=== PATIENT | male | born 1930 | race Caucasian/White ===

== ENCOUNTER 2017-09-27 06:57 | Inpatient (IN) ==
[2017-09-27 07:03] VITALS: BMI 31.1
--- NOTE | 2017-09-27 07:33 | ED.PDOC ---
General ED Provider: Dr. LUIS HANSON Chief Complaint: Chest Wall Injury/Pain Stated Complaint: chest wall injury Time Seen by Physician: 07:00 (fall 10 days ago) Information Source: Patient Exam Limitations: No limitations Primary Care Provider: PERLA NUNEZ Nursing and Triage Documentation Reviewed and Agree: Yes Reviewed sepsis parameters & appropriate labs ordered?: Yes System Inflammatory Response Syndrome: Not Applicable Sepsis Protocol: For patient's 13 years and over: Temp is 96.8 and below OR 101 and greater Pulse >90 BPM Resp >20/minute Acutely Altered Mental Status Are patient's symptoms suggestive of a new infection, such as: -Pneumonia -Skin, Soft Tissue -Endocarditis -UTI -Bone, Joint Infection -Implantable Device -Acute Abdominal Infection -Wound Infection -Meningitis -Blood Stream Catheter Infection -Unknown Cardiovascular Complaint Exam - Chest Pain Complaint/Exam Onset: Gradual Duration: this AM , BUT FELL 10DAYS AGO Symptoms Are: Still present Timing: Intermittent Length of Chest Pain Episodes: 1HR POSTIONAL Initial Severity: Moderate Current Severity: Moderate Location: Reports: Midsternal Pain Radiates: Reports: Other (POSTIONAL AND REPRODUCEABLE BRADYCARDIC THIS MORNING). Denies: Back, Left shoulder, Right shoulder, Left arm, Right arm, Jaw , Neck, Epigastrium Character: Reports: Sharp (SEE ABOVE ISSUES ) Aggravating: Reports: Movement Alleviating: Reports: Spontaneous resolution Associated Signs and Symptoms: Denies: Diaphoresis, Nausea, Vomiting, Fever, Palpitations, Cough, Hemoptysis, Back pain, Abdominal pain, Dizziness, Short of air, Calf pain, Calf swelling Related History: Reports: Similar episode History of Healthcare-Acquired Pneumonia: Reports: No AMI/ACS Risk Factors: Reports: Sedentary, Hypertension TAD Risk Factors: Reports: Hypertension Pulmonary Embolism Risk Factors: Reports: Bedrest Prior Care for this Complaint: No Recent Stress Test: No Recent Echo/LV Function: No JVD Present: No Subcutaneous Emphysema Present: No Diminshed Breath Sounds: No Reproducible Chest Wall Pain: Yes (ANT UPPER CHEST) Bilateral Pulses Present: Yes Unequal Pulses Noted: No If Risk Factors for AMI/ACS Consider: EKG, Cardiac Enzymes Differential Diagnoses: Stable Angina, GI Diseasae Quality Indicators For Acute [place] or Cardiac Chest Pain: EKG in 10min. Review of Systems - Review Of Systems Constitutional: Reports: No symptoms Eyes: Reports: No symptoms Ears, Nose, Mouth, Throat: Reports: No symptoms Respiratory: Reports: No symptoms Cardiac: Reports: Chest pain GI: Reports: No symptoms : Reports: No symptoms Musculoskeletal: Reports: No symptoms Skin: Reports: No symptoms Neurological: Reports: No symptoms Endocrine: Reports: No symptoms Hematologic/Lymphatic: Reports: No symptoms All Other Systems: Reviewed and Negative Past Medical History - Past Medical History Previously Healthy: Yes Endocrine: Reports: Dyslipidemia Cardiovascular: Reports: Hypertension Respiratory: Reports: None Hematological: Reports: None Gastrointestinal: Reports: None Genitourinary: Reports: None Neuro/Psych: Reports: None Musculoskeletal: Reports: None Cancer: Reports: None - Surgical History General Surgical History: Reports: None - Family History Family History: Reports: None - Social History Smoking Status: Never smoker Hx Substance Use: No Alcohol Screening: Occasionally Physical Exam - Physical Exam Appearance: Well-appearing, No pain distress, Well-nourished Eyes: BETO, EOMI, Conjunctiva clear ENT: Ears normal, Nose normal, Oropharynx normal Respiratory: Airway patent, Breath sounds clear, Breath sounds equal, Respirations nonlabored Cardiovascular: Pulses normal, No rub, No murmur, Bradycardia GI/: Soft, Nontender, No masses, Bowel sounds normal, No Organomegaly Musculoskeletal: Normal strength (reproduceable pain over upper chest centraly ) Skin: Warm, Dry, Normal color Neurological: Sensation intact, Motor intact, Reflexes intact, Cranial nerves intact, Alert, Oriented Psychiatric: Affect appropriate, Mood appropriate Physician Notification - Case Discussed Physician Notified: pmd Time of Notification: 09:00 Admit To: Inpatient Critical Care Note - Critical Care Note Total Time (mins): 0 Course - Course Hematology/Chemistry: 09/27/17 07:45 09/27/17 07:45 Orders, Labs, Meds: Lab Review 09/27/17 09/27/17 09/27/17 07:45 07:45 07:45 WBC 4.72 RBC 3.54 L Hgb 10.7 L Hct 31.2 L MCV 88.1 MCH 30.2 MCHC 34.3 RDW Coeff of Ivana 19.5 H Plt Count 90 L Immature Gran % (Auto) 1.9 Neut % (Auto) 56.2 Lymph % (Auto) 32.4 [place] % (Auto) 7.6 Eos % (Auto) 1.5 Baso % (Auto) 0.4 Immature Gran # (Auto) 0.1 Neut # (Auto) 2.7 Lymph # (Auto) 1.5 [place] # (Auto) 0.4 Eos # (Auto) 0.1 Baso # (Auto) 0.0 Sodium 134 L Potassium 3.9 Chloride 100 Carbon Dioxide 24 Anion Gap 13.9 BUN 17 Creatinine 0.84 Estimated GFR (MDRD) 86.00 BUN/Creatinine Ratio 20.23 Glucose 107 Calcium 8.9 Total Bilirubin 0.7 AST 15 ALT 11 L Alkaline Phosphatase 61 Total Creatine Kinase 42 Troponin I < 0.0100 B-Natriuretic Peptide 355 H Total Protein 6.5 Albumin 3.2 L Globulin 3.3 Albumin/Globulin Ratio 0.97 Orders Category Date Time Status EKG-(ED ONLY) Stat CARDIO 09/27/17 07:28 Completed ED IV/MEDIPORT/POWERPORT .ONCE EMERGENCY 09/27/17 07:28 Active B-TYPE NATRIURETIC PEPTIDE Stat LAB 09/27/17 07:45 Completed CBC W/ AUTO DIFF Stat LAB 09/27/17 07:45 Completed COMPREHENSIVE METABOLIC PANEL Stat LAB 09/27/17 07:45 Completed CREATINE KINASE Stat LAB 09/27/17 07:45 Completed TROPONIN I Stat LAB 09/27/17 07:45 Completed 0.9 % Sodium Chloride [Saline Flush] MEDS 09/27/17 07:28 Active 1 syr IVF PRN PRN CT CHEST W/O CONTRAST Stat RADS 09/27/17 07:29 Completed Medications Generic Name Dose Route Start Last Admin Trade Name Freq PRN Reason Stop Dose Admin Sodium Chloride 1 syr 09/27/17 07:28 Saline Flush IVF PRN PRN To flush IV Vital Signs: Temp Pulse Resp BP Pulse Ox 09/27/17 06:58 97.1 F L 50 L 20 152/75 H 94 L OBED Risk Score OBED Risk Score: Risk Score Odds of by 30D 0 0.1 (0.1-0.2) 1 0.3 (0.2-0.3) 2 0.4 (0.3-0.5) 3 0.7 (0.6-0.9) 4 1.2 (1.0-1.5) 5 2.2 (1.9-2.6) 6 3.0 (2.5-3.6) 7 4.8 (3.8-6.1) Departure - Departure Time of Disposition: 08:28 Disposition: ADMITTED INPATIENT Discharge Problem: Chest wall pain, Chest injury Chest pain Qualifiers: Chest pain type: unspecified Qualified Code(s): R07.9 - Chest pain, unspecified Instructions: Angina (DC), Chest Pain (ED) Condition: Good Pt referred to PMD for follow-up: Yes IPMP verified?: No Additional Instructions: Please call your Family Physician as soon as possible to schedule a follow-up appointment. Allergies/Adverse Reactions: Allergies No Known Allergies Allergy (Unverified 09/27/17 07:02) Home Medications: Ambulatory Orders Donepezil HCl 10 mg PO BEDTIME 09/27/17 Gabapentin 100 mg PO BID 09/27/17 Hydrochlorothiazide 25 mg PO EVERY OTHER DAY 09/27/17 Lisinopril [Zestril] 5 mg PO DAILY 09/27/17 Pravastatin Sodium [Pravachol] 40 mg PO BEDTIME 09/27/17 Propranolol HCl 40 mg PO BID 09/27/17 Sulfasalazine 500 mg PO BID 09/27/17 Disposition Discussed With: Patient, Family
--- NOTE | 2017-09-27 08:13 | CT ---
EXAM: CT chest without contrast. HISTORY: Chest pain, trauma. Initial presentation. COMPARISON: None available. TECHNIQUE: Multiple axial images of the chest were obtained without intravenous contrast. Images we re reformatted in the sagittal and coronal planes. FINDINGS: Evaluation for lymphadenopathy is limited by lack of intravenous contrast but heart size i s normal. Atherosclerotic calcifications present. Ascending thoracic aorta measures up to 3.8 cm di ameter. No periaortic hemorrhage identified. The lungs are clear save for calcified granulomatous changes. No pleural effusion or pneumothorax id entified. Limited images of the upper abdomen demonstrate a left renal cysts and colonic diverticulosis. Degen erative changes are present in the spine minimally-displaced fracture of the sternal body seen on sag ittal image 39. IMPRESSION: 1. Minimally-displaced sternal body fracture. 2. No acute intrathoracic abnormality.
[2017-09-27] MEDS ORDERED: HYDROCHLOROTHIAZIDE PO SCH (09:00)
--- NOTE | 2017-09-27 09:24 | CT ---
EXAM: CT BRAIN HISTORY: Fall TECHNIQUE: CT brain without intravenous contrast. 5-mm axial sections with Reformations. COMPARISON: 10/09/2007 FINDINGS: There is generalized atrophy. There is at least mild periventricular and deep white matter low attenu ation which although nonspecific is suggestive of chronic microvascular ischemic change. These findi ngs are grossly stable. Brain otherwise is unremarkable without evidence of hemorrhage or large vessel distribution recent is chemic infarction. There is no suggestion of acute hydrocephalus or subdural fluid collection. No m ass or mass effect. Cranium is within normal limits. Mastoid processes are aerated. The visualized paranasal sinuses a re clear. IMPRESSION: No acute intracranial process or injury. No skull fracture.
--- NOTE | 2017-09-27 09:30 | CT ---
EXAM: CT scan thoracic spine without contrast HISTORY: Injury COMPARISON: None. FINDINGS: Contiguous axial images obtained through the thoracic spine utilizing 3-mm collimation. S agittal and coronal reconstructions were imaged and reviewed.. The vertebral bodies normal height al ignment. There is multilevel degenerate disc disease within the lower half of the thoracic spine wit h ventral spondylitic changes. The facet joints are intact. There is mild narrowing of the central c anal and bilateral neural foramen T10-T11. IMPRESSION: Osteoarthritic degenerative changes without acute findings.
--- NOTE | 2017-09-27 09:33 | CT ---
EXAM: CT cervical spine. HISTORY: Fall, injury. TECHNIQUE: CT cervical spine without contrast. Detailed axial sections. Coronal and sagittal re-fo rmations. COMPARISON: None FINDINGS: Bones appear demineralized. No acute fracture is identified. There is diffuse degenerative disc and facet disease, some levels severe including C5/C6 where there is loss of intervertebral disc space an d endplate sclerosis without endplate erosion. There is mild posterior spondylolisthesis of C5 on C6 by 2.3 mm likely chronic in nature. Multilevel central stenosis, again most apparent at C5/C6, at l east moderate. Facet joints are covered. Lateral masses are normally aligned and the odontoid proce ss is intact. There is no paraspinal hematoma. Incidental findings include atherosclerotic disease. IMPRESSION: No acute fracture or subluxation. Diffuse degenerative changes.
[2017-09-27] MEDS: NEURONTIN PO SCH ×2 (11:11→20:13)
[2017-09-27] MEDS: AZULFIDINE PO SCH ×2 (11:11→20:13)
[2017-09-27] MEDS: SODIUM CHLORIDE 1,000 ML IV SCH ×2 (11:12→23:12)
[2017-09-27] MEDS: ZESTRIL PO SCH (11:12)
[2017-09-27] MEDS: TORADOL IVP SCH ×2 (13:43→21:13)
--- NOTE | 2017-09-27 14:45 | US ---
EXAM: Carotid ultrasound HISTORY: Falls, dizziness/lightheadedness, hypertension COMPARISON: None TECHNIQUE: Carotid ultrasound was performed using victor scale, color, and Doppler imaging was perform ed. FINDINGS: Right carotid: There is atherosclerotic plaque in the bulb/proximal internal carotid artery with vis ual estimate of narrowing approximating 50%. Peak systolic velocity measurement in the right interna l carotid artery is 0.9 meters per second. End-diastolic velocity measurement in the right internal carotid artery is 0.1 meters per second. Right internal to common carotid artery peak systolic veloc ity ratio is 1.6. Right vertebral artery not visualized. Left carotid: There is atherosclerotic plaque in the bulb/proximal internal carotid artery with visu al estimate of narrowing approximating 50%. Peak systolic velocity measurement in the left internal carotid artery is 1.0 meters per second. End-diastolic velocity measurement in the left internal car otid artery is 0.1 meters per second. Left internal to common carotid artery peak systolic velocity ratio measures 1.5. Flow in the left vertebral artery is antegrade. IMPRESSION: 1. Right internal carotid: Peak systolic velocity corresponds with mild (less than 50%) stenosis, wit h the visual estimate of narrowing approximating 50% 2. Left internal carotid: Peak systolic velocity corresponds with mild (less than 50%) stenosis, wit h the visual estimate of narrowing approximating 50% 3. Right vertebral artery not visualized. Antegrade flow left vertebral artery.
[2017-09-27] MEDS ORDERED: PRAVACHOL PO SCH (21:00)
[2017-09-28] MEDS: TORADOL IVP SCH (04:17)
[2017-09-28] MEDS: AZULFIDINE PO SCH (08:50)
[2017-09-28] MEDS: NEURONTIN PO SCH (08:50)
[2017-09-28] MEDS: ZESTRIL PO SCH (08:50)
[2017-09-28] MEDS ORDERED: HYDROCHLOROTHIAZIDE PO SCH (09:00)
[2017-09-28 10:20] VITALS: BP 144/62; TEMP 97.6
--- NOTE | 2017-09-28 11:23 | PCM.PROG ---
Attending Provider: ATTENDING PROVIDER: Dr. PERLA NUNEZ This patient is seen with Grace Simons, Nurse Practitioner. DATE OF SERVICE: 09/28/17 SUBJECTIVE: This 87 year old WHITE/ M was hospitalized 09/27/17. The patient is sitting in chair, alert. He states he wants to go home today. His pain is minimal. No shortness of breath. He does have some elevated blood pressure and leg edema, which is chronic. REVIEW OF SYSTEMS: CONSTITUTIONAL: No night sweats. No fatigue, malaise, lethargy. No fever or chills. HEENT: Eyes: No visual changes. No eye pain. No eye discharge. ENT: No runny nose. No epistaxis. No sinus pain. No odynophagia. No congestion. RESPIRATORY: No cough, no congestion. No hemoptysis. No shortness of breath. CARDIOVASCULAR: No angina symptoms. No CHF symptoms. No atypical chest pain for CAD. No palpitations. No orthopnea.. GASTROINTESTINAL: No abdominal pain. No nausea or vomiting. No diarrhea or constipation. No hematemesis. No hematochezia. GENITOURINARY: No urgency. No frequency. No dysuria. No hematuria. No obstructive symptoms. No discharge. No pain. No significant abnormal bleeding. MUSCULOSKELETAL: Tenderness in sternal region. NEUROLOGICAL: Awake, alert, oriented to time, place and person. No headache. No neck pain. No syncope. No seizures. No dizziness. PSYCHIATRIC: Not anxious. No depression. No suicidal thoughts. No homicidal thoughts. SKIN: No rash. No lesions. No wounds. ENDOCRINE: No unexplained weight loss. No weight gain. HEMATOLOGIC/LYMPHATIC: No anemia. No purpura. No petechiae. No prolonged or excessive bleeding. No palpable lymph nodes. PHYSICAL EXAMINATION: GENERAL: The patient is awake, alert and oriented, sitting in chair in no distress. VITAL SIGNS: Temperature 97.5 F, Pulse 51, Respiratory Rate 16, BP 160/62, Pulse Ox 98% HEENT: Head normocephalic, atraumatic. Eyes: Extraocular muscles are intact. Pupils are equal, round and reactive to light and accommodation. Ears: No lesions. Nose appeared normal. Throat: No exudate or erythema. NECK: Supple. No JVD, no carotid bruit. No lymphadenopathy or thyromegaly. LUNGS: Diminished breath sounds. Clear to auscultation. Percussion note normal. Chest symmetrical. HEART: S1, S2, no S3. No murmurs. No cyanosis or clubbing. No ascites. Pulses: Dorsalis pedis and posterior tibial pulses +1 to +2 both sides. ABDOMEN: Soft. Non-tender. Bowel sounds active. No CVA tenderness. No mass felt. EXTREMITIES: +1 leg edema. Full range of motion of all extremities, equal. NEUROLOGIC: No focal deficit. Cranial nerves II through XII are grossly intact. No headache, no double vision or headache. SKIN: Not dry. Intact. Turgor-normal. LYMPHATIC: No palpable lymph nodes/no lymphedema. MUSCULOSKELETAL: Tenderness in mid sternum. LAB REVIEW: 09/28/17 04:30 09/28/17 04:30 09/28/17 04:30: Sodium 133 L, Potassium 3.8, Chloride 98, Carbon Dioxide 27, Anion Gap 11.8, BUN 24 H, Creatinine 1.14 H, Estimated GFR (MDRD) 61.00, BUN/ Creatinine Ratio 21.05, Glucose 105, Calcium 8.7, Total Bilirubin 0.7, AST 13 L , ALT 10 L, Alkaline Phosphatase 61, Total Protein 6.6, Albumin 3.3 L, Globulin 3.3, Albumin/Globulin Ratio 1.00 09/28/17 04:30: WBC 5.53, RBC 3.67 L, Hgb 11.0 L, Hct 33.0 L, MCV 89.9, MCH 30.0 , MCHC 33.3, RDW Coeff of Ivana 19.5 H, Plt Count 103 L, Immature Gran % (Auto) 1.8, Neut % (Auto) 66.3, Lymph % (Auto) 23.9, [place] % (Auto) 6.3, Eos % (Auto) 1.3, Baso % (Auto) 0.4, Immature Gran # (Auto) 0.1, Neut # (Auto) 3.7, Lymph # ( Auto) 1.3, [place] # (Auto) 0.4, Eos # (Auto) 0.1, Baso # (Auto) 0.0 09/27/17 22:42: Total Creatine Kinase 39, Troponin I 0.0100 09/27/17 14:50: Total Creatine Kinase 41, Troponin I 0.0130 09/27/17 07:45: B-Natriuretic Peptide 355 H 09/27/17 07:45: Sodium 134 L, Potassium 3.9, Chloride 100, Carbon Dioxide 24, Anion Gap 13.9, BUN 17, Creatinine 0.84, Estimated GFR (MDRD) 86.00, BUN/ Creatinine Ratio 20.23, Glucose 107, Calcium 8.9, Total Bilirubin 0.7, AST 15, ALT 11 L, Alkaline Phosphatase 61, Total Creatine Kinase 42, Troponin I < 0.0100 , Total Protein 6.5, Albumin 3.2 L, Globulin 3.3, Albumin/Globulin Ratio 0.97 09/27/17 07:45: WBC 4.72, RBC 3.54 L, Hgb 10.7 L, Hct 31.2 L, MCV 88.1, MCH 30.2 , MCHC 34.3, RDW Coeff of Ivana 19.5 H, Plt Count 90 L, Immature Gran % (Auto) 1.9 , Neut % (Auto) 56.2, Lymph % (Auto) 32.4, [place] % (Auto) 7.6, Eos % (Auto) 1.5, Baso % (Auto) 0.4, Immature Gran # (Auto) 0.1, Neut # (Auto) 2.7, Lymph # (Auto ) 1.5, [place] # (Auto) 0.4, Eos # (Auto) 0.1, Baso # (Auto) 0.0 ASSESSMENT: 1. Minimally displaced sternal body fracture 2. Hypertension 3. Leg edema PLAN: 1. Anticipate d/c home 2, Ultram 50 mg b.i.d. p.r.n. 3. D/C IV fluids 4. Elevate legs Plan and coordination of the patient's care discussed in the presence of Is Consultant and nurse. CONDITION: Stable SCRIBED BY: BENJAMIN STEIN High Lead Yarder scribed while in presence of service performed by Dr. Nunez/Grace Simons APRN on 09/28/17 ([id number])
--- NOTE | 2017-09-28 11:44 | CM.DICTOOL ---
ADMISSION: 09/27/17 08:46 DISCHARGE: 09/28/17 DATE OF SERVICE: 09/28/17 FINAL DIAGNOSIS CHEST WALL PAIN STERNAL FRACTURE S/P FALL AT HOME, 09/17/17 BRADYCARDIA HYPERTENSION DYSLIPIDEMIA IRRITABLE BOWEL SYNDROME/CROHN'S DISEASE DEMENTIA, MILD TONSILLECTOMY IN CHILDHOOD HEMORRHOIDECTOMY NEVER SMOKER OCCASIONAL ETOH, SOCIALLY LAST VITALS Temp Pulse Resp BP Pulse Ox 97.6 F 88 20 144/62 H 92 L 09/28/17 10:00 09/28/17 10:00 09/28/17 10:00 09/28/17 10:00 09/28/17 10:00 TAKE THESE MEDICATIONS AT HOME Gabapentin (Neurontin) 100 mg PO BID [facility] Last Admin: 09/28/17 08:50 Dose: 100 mg Hydrochlorothiazide (Hydrochlorothiazide) 25 mg PO EVERY OTHER DAY [facility] Last Admin: 09/28/17 08:50 Dose: 25 mg Lisinopril (Zestril) 5 mg PO DAILY [facility] Last Admin: 09/28/17 08:50 Dose: 5 mg Pravastatin Sodium (Pravachol) 40 mg PO BEDTIME [facility] Last Admin: 09/27/17 20:13 Dose: 40 mg Propranolol Hcl (Inderal) 20 mg PO BID Sulfasalazine (Azulfidine) 500 mg PO BID [facility] Last Admin: 09/28/17 08:50 Dose: 500 mg Ultram 50 mg PO BID PRN PAIN #30 only no refills ALLERGIES No Known Allergies Allergy (Unverified 09/27/17 07:02) HOME MEDICATION CHANGES MADE DURING THIS STAY Propranolol Hcl (Inderal) 40 mg PO BID has been decreased to 20 mg PO BID see new prescriptions NEW PRESCRIPTIONS: ULTRAM 50 MG, TAKE ONE TABLET BY MOUTH TWICE DAILY IF NEEDED (PRN) FOR IVAN SMOKING: NEVER SMOKER DISEASE SPECIFIC EDUCATION: STERNAL FRACTURE LEG EDEMA NONCARDIAC CHEST PAIN HOME MEDICATIONS AND CHANGES MADE DURING THIS STAY NEW PRESCRIPTIONS FOLLOW UP LAB REVIEW: 09/28/17 04:30 09/28/17 04:30 09/28/17 04:30: Sodium 133 L, Potassium 3.8, Chloride 98, Carbon Dioxide 27, Anion Gap 11.8, BUN 24 H, Creatinine 1.14 H, Estimated GFR (MDRD) 61.00, BUN/ Creatinine Ratio 21.05, Glucose 105, Calcium 8.7, Total Bilirubin 0.7, AST 13 L , ALT 10 L, Alkaline Phosphatase 61, Total Protein 6.6, Albumin 3.3 L, Globulin 3.3, Albumin/Globulin Ratio 1.00 09/28/17 04:30: WBC 5.53, RBC 3.67 L, Hgb 11.0 L, Hct 33.0 L, MCV 89.9, MCH 30.0 , MCHC 33.3, RDW Coeff of Ivana 19.5 H, Plt Count 103 L, Immature Gran % (Auto) 1.8, Neut % (Auto) 66.3, Lymph % (Auto) 23.9, [place] % (Auto) 6.3, Eos % (Auto) 1.3, Baso % (Auto) 0.4, Immature Gran # (Auto) 0.1, Neut # (Auto) 3.7, Lymph # ( Auto) 1.3, [place] # (Auto) 0.4, Eos # (Auto) 0.1, Baso # (Auto) 0.0 09/27/17 22:42: Total Creatine Kinase 39, Troponin I 0.0100 09/27/17 14:50: Total Creatine Kinase 41, Troponin I 0.0130 PLAN: DISCHARGE HOME TODAY RETURN TO SEE DR. NUNEZ ON 10/05/17 AT 11:15 A.M. RESUME YOUR HOME MEDICATIONS PER LIST PROVIDED BY THE NURSING STAFF NOTE THE DECREASE IN YOUR PROPRANOLOL HCL (INDERAL) TO 20 MG PO BID NEW PRESCRIPTIONS ULTRAM 50 MG, TAKE ONE TABLET BY MOUTH TWICE DAILY IF NEEDED (PRN) FOR PAIN ACTIVITY GET PLENTY OF REST AT HOME. GRADUALLY INCREASE YOUR ACTIVITY LEVEL ACCORDING TO YOUR TOLERATION KEEP YOUR FEET AND LEGS ELEVATED OFTEN POSSIBLE DIET HEALTHY HEART SUMMARY THE PATIENT IS ALERT AND ORIENTED X3. HE CURRENTLY RESIDES AT HOME WITH HIS SPOUSE. HE HAS BEEN INDEPENDENT WITH ADL'S AND TELLS ME HE CONTINUES TO BE ABLE TO PROVIDE HIS OWN TRANSPORTATION. HE SAYS HE HAS A ROLLING WALKER, CANE AND SHOWER CHAIR AT HOME FOR USE IF NECESSARY. HE DENIES HAVING AND DECLINES REFERRAL FOR HOME HEALTH OR HOMEMAKING SERVICES. HE DESIRES TO RETURN HOME AT DISCHARGE. SKIN TURGOR IS FAIR. MULTIPLE AREAS OF BRUISING ARE NOTED TO THE ARMS. THERE ARE NO DECUBITUS ULCERS PRESENT ON DISCHARGE. HYDRATION AND NUTRITIONAL STATUS ARE VERY GOOD. THE PATIENT'S CHEST SORENESS FROM HIS RECENT FALL HAS IMPROVED SO THAT HE WANTS TO BE DISCHARGED HOME TODAY. WE WILL CONTINUE TO FOLLOW HIM THROUGH THE OFFICE IN THE OUTPATIENT SETTING. CURRENT CODE STATUS FULL CODE RAFI GARNETT APRN PERLA NUNEZ M.D.
--- NOTE | 2017-10-02 09:55 | PN ---
DATE OF SERVICE: 09/27/17 SUBJECTIVE: 87 year old white male hospitalized with fall. The patient sustained fracture of the Manubrium sternum which is non displaced. On further workup the patient has bradycardia with heart rate being 40-50 per minute at time. He is being observed for possible kayleigh arrhythmias. The patient's blood pressure is usually 140-160/70 so the bradycardia is supporting the blood pressure. His electrolytes are normal with hgb 10.7 and hct of 31, BNP was 355. T4 TSH will be done. REVIEW OF SYSTEMS: CONSTITUTIONAL: No night sweats. No fatigue, malaise, lethargy. No fever or chills. HEENT: Eyes: No visual changes. No eye pain. No eye discharge. ENT: No runny nose. No epistaxis. No sinus pain. No sore throat. No odynophagia. No congestion. RESPIRATORY: No cough, no congestion. No hemoptysis. No shortness of breath. CARDIOVASCULAR: No angina symptoms. No CHF symptoms. No atypical chest pain for CAD. No palpitations. No orthopnea. GASTROINTESTINAL: No abdominal pain. No nausea or vomiting. No diarrhea or constipation. No hematemesis. No hematochezia. GENITOURINARY: No urgency. No frequency. No dysuria. No hematuria. No obstructive symptoms. No discharge. No pain. No significant abnormal bleeding. MUSCULOSKELETAL: No musculoskeletal pain; no joint swelling. NEUROLOGICAL: No headache. No neck pain. No syncope. No seizures. No dizziness. PSYCHIATRIC: Not anxious. No depression. No suicidal thoughts. No homicidal thoughts. SKIN: No rash. No lesions. No wounds. ENDOCRINE: No unexplained weight loss. No weight gain. HEMATOLOGIC/LYMPHATIC: No anemia. No purpura. No petechiae. No prolonged or excessive bleeding. No palpable lymph nodes. PHYSICAL EXAMINATION: GENERAL: The patient is alert and oriented. HEENT: Head normocephalic, atraumatic. Eyes: Extraocular muscles are intact. Pupils are equal, round and reactive to light and accommodation. Ears: No lesions. Nose appeared normal. Throat: No exudate or erythema. NECK: Supple. No JVD, no carotid bruit. No lymphadenopathy or thyromegaly. LUNGS: Clear to auscultation. Percussion note normal. Chest symmetrical. HEART: S1, S2, no S3. No murmurs. No cyanosis or clubbing. No ascites. Pulses: Dorsalis pedis and posterior tibial pulses +1 to +2 both sides. ABDOMEN: Soft. Nontender. Bowel sounds active. No CVA tenderness. No mass felt. EXTREMITIES: No edema. Full range of motion of all extremities, equal. NEUROLOGIC: No focal deficit. Cranial nerves II through XII are grossly intact. No headache, no double vision or headache. SKIN: Not dry. Intact. Turgor - normal. LYMPHATIC: No palpable lymph nodes/no lymphedema. MUSCULOSKELETAL: Normal joints with no swelling. Muscle tone is normal. ASSESSMENT: 1. Fractured sternum with the fall 2. Kayleigh arrhythmia 3. The patient has been on Inderal for tremors 4. Hypertension 5. Dyslipidemia 6. Neuropathy PLAN: 1. Will cut down the Inderal to 20mg Twice a day CONDITION: Stable. TIME SPENT: More than 30 minutes. Plan and coordination of the patient's care discussed in the presence of nurse. RADHA
--- NOTE | 2017-10-04 15:52 | DS ---
DATE OF SERVICE: 09/28/17 FINAL DIAGNOSIS: CHEST WALL PAIN STERNAL FRACTURE S/P FALL AT HOME, 09/17/17 BRADYCARDIA HYPERTENSION DYSLIPIDEMIA IRRITABLE BOWEL SYNDROME/CROHN'S DISEASE DEMENTIA, MILD TONSILLECTOMY IN CHILDHOOD HEMORRHOIDECTOMY NEVER SMOKER OCCASIONAL ETOH, SOCIALLY LAST VITALS: Temp Pulse Resp BP Pulse Ox 97.6 F 88 20 144/62 H 92 L TAKE THESE MEDICATIONS AT HOME: Gabapentin (Neurontin) 100 mg PO BID CASIE Hydrochlorothiazide (Hydrochlorothiazide) 25 mg PO EVERY OTHER DAY CASIE Lisinopril (Zestril) 5 mg PO DAILY CASIE Pravastatin Sodium (Pravachol) 40 mg PO BEDTIME CASIE Propranolol Hcl (Inderal) 20 mg PO BID Sulfasalazine (Azulfidine) 500 mg PO BID CASIE Ultram 50 mg PO BID PRN PAIN #30 only no refills ALLERGIES: No Known Allergies Allergy (Unverified 09/27/17 07:02) HOME MEDICATION CHANGES MADE DURING THIS STAY: Propranolol Hcl (Inderal) 40 mg PO BID has been decreased to 20 mg PO BID see new prescriptions NEW PRESCRIPTIONS: ULTRAM 50 MG, TAKE ONE TABLET BY MOUTH TWICE DAILY IF NEEDED (PRN) FOR IVAN SMOKING: NEVER SMOKER DISEASE SPECIFIC EDUCATION: STERNAL FRACTURE LEG EDEMA NONCARDIAC CHEST PAIN HOME MEDICATIONS AND CHANGES MADE DURING THIS STAY NEW PRESCRIPTIONS FOLLOW UP PLAN: DISCHARGE HOME TODAY RETURN TO SEE DR. NUNEZ ON 10/05/17 AT 11:15 A.M. RESUME YOUR HOME MEDICATIONS PER LIST PROVIDED BY THE NURSING STAFF NOTE THE DECREASE IN YOUR PROPRANOLOL HCL (INDERAL) TO 20 MG PO BID ACTIVITY: GET PLENTY OF REST AT HOME. GRADUALLY INCREASE YOUR ACTIVITY LEVEL ACCORDING TO YOUR TOLERATION KEEP YOUR FEET AND LEGS ELEVATED OFTEN POSSIBLE DIET: HEALTHY HEART [facility] COURSE: This is a 87 year old white male who experienced a fall at home approximately 2- 3 weeks ago. He presented to the emergency room with chest wall pain yesterday. X-ray revealed a nondisplaced sternal fracture. He was not experiencing any shortness of breath however he was experiencing some bradycardia. He was subsequently admitted and placed on Toradol 30mg IV Q 8 hours due to his Bradycardia. His Inderal was decreased from 40mg twice a day to 20mg twice a day. This morning upon examination he was not experiencing any pain. Again he was not experiencing any shortness of breath, have very mild tenderness to palpation to his sternal area. His heart rate has improved pulse was 88. He stated that he wanted to go home. He didn't want any pain medication however we did provide him with a prescription for Ultram 50mg twice a day PRN. He will go home with the instructions to take 20mg of Inderal twice a day. Fall precautions have been discussed. His blood pressure has been controlled and he is stable. Temperature 97.6, heart rate 88, respirations 20 and blood pressure 144/62 and pulse ox 94%. His pain flared up yesterday after too much activity. He has been instructed to rest and gradually increase his activity level according to his toleration. We will followup with him in the office next week. TIME SPENT: More than 60 minutes. RADHA
--- NOTE | 2017-10-05 08:58 | HP ---
DATE OF SERVICE: 09/27/17 REASON FOR HOSPITALIZATION/HISTORY OF PRESENT ILLNESS: 87 year old white male who presents to the emergency room complaining of centered chest wall pain. He stated that he feel approximately 2-3 weeks ago and hit the counter at his home. He is not experiencing any shortness of breath. PAST MEDICAL HISTORY: Dementia Neuropathy Hypertension Leg edema Dyslipidemia Crohn's disease Irritable bowel syndrome PAST SURGICAL HISTORY: Tonsillectomy Hemorrhoidectomy REVIEW OF SYSTEMS: CONSTITUTIONAL: No fever, no fatigue. HEENT: No sinus drainage, no sore throat. RESPIRATORY: No cough, no congestion. CARDIOVASCULAR: No atypical chest pain for coronary artery disease. No angina , CHF symptoms, palpitations or shortness of breath. GASTROINTESTINAL: No melena or abdominal pain. No GERD. GENITOURINARY: No hematuria, no prostatism, no polyuria. OSS ARCHITECT: No blackout, no dizziness, no headache, no double vision. MUSCULOSKELETAL: No osteoarthritis pain, no joint swelling. Sternal pain. ENDOCRINE: No weight loss, no weight gain. SKIN: Not dry, no rash. PSYCHIATRIC: Not anxious, no depression, no suicidal thoughts, no homicidal thoughts. SOCIAL HISTORY: The patient is , nonsmoker and lives at home with his . Only social alcohol use. MEDICATIONS: Propranolol 40mg PO twice a day Zestril 5mg PO daily Gabapentin 100mg PO twice a day Pravachol 40mg PO bedtime Donepezil 10mg PO bedtime Hydrochlorothiazide 25mg PO every other day Sulfasalazine 500mg Po twice a day ALLERGIES: No known allergies PHYSICAL EXAMINATION: V/S: Temperature 97.1, heart rate 50, respiratory rate 20, blood pressure 152/ 75 and pule ox 94%. GENERAL APPEARANCE: Oriented times three. HEENT: Normal. NECK: No JVP, no bruits. RESPIRATORY: Diminished breath sounds bilaterally. CARDIOVASCULAR: S1, S2, no S3, Bradycardic heart rate. no murmurs. No cyanosis, clubbing. No ascites. Mild tenderness to mid sternum to palpation. GI/ABDOMEN: No tenderness. Bowel sounds are active. EXTREMITIES: Trace to +1 bilateral leg edema which is chronic, pulses +1, equal. OSS ARCHITECT: Deep tendon reflexes, sensory, motor and gait all normal. RECTAL/PELVIC/PROSTATE: LABS: WBC 4.72, hgb 10.7, hct 31.2, plt count 90, sodium 134, potassium 3.9, BUN 17, creatinine 0.84, AST 11, ALT 15, Alkaline phosphatase 61, BNP 355, Troponin less than 0.01, total protein 6.5. CT of the chest showed nondisplaced sternal fracture. ASSESSMENT: 1. Chest wall pain 2. Sternal fracture status post fall at home 3. Bradycardia 4. Hypertension 5. Dyslipidemia 6. Irritable bowel syndrome 7. Dementia 8. Crohn's disease PLAN: 1. Will admit the patient 2. Routine telemetry orders 3. Toradol 30mg IV Q 8 hours for pain 4. Continue all home medications with the exception of decreased Inderal to 20mg twice a day due to Bradycardia 5. CBC and CMP daily 6. O2 at 1-2 liters as needed 7. Regular diet 8. Fall precautions 9. The patient up and about as tolerated TIME SPENT: More than 70 minutes. MTDD
== END 2017-09-28 12:04 | disposition home or self-care (01) | DRG 313 ==
LOC: ED 06:57 → MEDSURG B 08:46
PROVIDERS: ADMIT Internal Medicine; ATTEND Internal Medicine
DX: R07.89 Other chest pain (principal); S22.20XD Unspecified fracture of sternum, subsequent encounter for fracture with routine healing; K50.90 Crohn's disease, unspecified, without complications; W01.190A Fall on same level from slipping, tripping and stumbling with subsequent striking against furniture, initial encounter; Y93.9 Activity, unspecified; Y92.9 Unspecified place or not applicable; R00.1 Bradycardia, unspecified; I10 Essential (primary) hypertension; E78.5 Hyperlipidemia, unspecified; G62.9 Polyneuropathy, unspecified; R60.0 Localized edema; K58.8 Other irritable bowel syndrome; F03.90 Unspecified dementia, unspecified severity, without behavioral disturbance, psychotic disturbance, mood disturbance, and anxiety
CPT/HCPCS: 36415; 80053; 82550; 83880; 84484; 85025; 93005; 93010; 99284

== ENCOUNTER 2018-10-24 14:01 | Emergency (ER) ==
[2018-10-24 14:09] VITALS: BP 102/42; TEMP 100.5; BMI 29.2
--- NOTE | 2018-10-24 14:52 | ED.PDOC ---
General ED Provider: Dr. ELENA ARREOLA Chief Complaint: Non-specific Complaint Stated Complaint: Food stuck on Esophagus. Had soft chicken last evening and believes has food stuck in his esophagus Time Seen by Physician: 15:10 Mode of Arrival: Walk-In Information Source: Patient Exam Limitations: Clinical condition, Dementia Primary Care Provider: PERLA NUNEZ Nursing and Triage Documentation Reviewed and Agree: Yes Does patient meet sepsis criteria?: No System Inflammatory Response Syndrome: Not Applicable Sepsis Protocol: For patient's 13 years and over: Temp is 96.8 and below OR 101 and greater Pulse >90 BPM Resp >20/minute Acutely Altered Mental Status Are patient's symptoms suggestive of a new infection, such as: -Pneumonia -Skin, Soft Tissue -Endocarditis -UTI -Bone, Joint Infection -Implantable Device -Acute Abdominal Infection -Wound Infection -Meningitis -Blood Stream Catheter Infection -Unknown GI Complaint Exam - Abdominal Pain Complaint/Exam Onset: Sudden (sensation of food bolus stuck in esophagus) Symptoms Are: Still present Timing: Constant Initial Severity: Moderate Current Severity: Moderate Location of Pain: Discrete, Epigastric Radiates To: Reports: Chest, Back Character: Reports: Dull, Burning Aggravating: Reports: Movement Alleviating: Reports: None Associated Signs and Symptoms: Reports: Decreased appetite AAA Risk Factors: Reports: None Cardiac Risk Factors: Reports: None Testicular Torsion Risk Factors: Reports: None Surgical Obstruction Risk Factors: Reports: None Related Surgical History: Reports: None Abdominal Findings: Present: None Differential Diagnoses: Other (Esophageal obstruction-food bolus) Review of Systems - Review Of Systems Constitutional: Reports: No symptoms Eyes: Reports: No symptoms Ears, Nose, Mouth, Throat: Reports: No symptoms Respiratory: Reports: No symptoms Cardiac: Reports: No symptoms GI: Reports: Blood streaked bowels, Difficulty swallowing, Nausea, Poor appetite , Poor fluid intake : Reports: No symptoms Musculoskeletal: Reports: No symptoms Skin: Reports: No symptoms Neurological: Reports: No symptoms Endocrine: Reports: No symptoms Hematologic/Lymphatic: Reports: No symptoms All Other Systems: Reviewed and Negative Past Medical History - Past Medical History Previously Healthy: Yes Endocrine: Reports: Dyslipidemia Cardiovascular: Reports: Hypertension Respiratory: Reports: None Hematological: Reports: None Gastrointestinal: Reports: None Genitourinary: Reports: None Neuro/Psych: Reports: None, Dementia Musculoskeletal: Reports: None Cancer: Reports: None - Surgical History General Surgical History: Reports: None - Family History Family History: Reports: None - Social History Smoking Status: Never smoker Hx Substance Use: No Alcohol Screening: Occasionally Physical Exam - Physical Exam Appearance: Well-appearing, Obese Ill-appearing: Mild Pain Distress: Mild Eyes: BETO, EOMI, Conjunctiva clear ENT: Ears normal, Nose normal, Oropharynx normal Neck: Supple Respiratory: Airway patent, Breath sounds clear, Breath sounds equal, Respirations nonlabored Cardiovascular: RRR, Pulses normal, No rub, No murmur GI/: Soft, Tender, Bowel sounds hypoactive Musculoskeletal: Normal strength, ROM intact, No edema, No calf tenderness Skin: Warm, Dry, Normal color Neurological: Sensation intact, Motor intact, Reflexes intact, Cranial nerves intact, Alert, Oriented Psychiatric: Affect appropriate, Mood appropriate Interpretation - Radiology Interpretation Exam Interpreted: CT Scan (chest and abdomen-filling defect distal esophagus susp for food bolus) Physician Notification - Case Discussed Physician Notified: [facility] Time of Notification: 17:10 (accepts patient in transfer) Critical Care Note - Critical Care Note Total Time (mins): 60 Course - Course Hematology/Chemistry: 10/24/18 15:25 10/24/18 15:25 Orders, Labs, Meds: Lab Review 10/24/18 10/24/18 10/24/18 15:25 15:25 15:27 WBC 3.18 L RBC 3.66 L Hgb 10.7 L Hct 32.9 L MCV 89.9 MCH 29.2 MCHC 32.5 RDW Coeff of Ivana 18.0 H Plt Count 109 L Immature Gran % (Auto) 1.3 Neut % (Auto) 53.5 Lymph % (Auto) 39.3 Kings % (Auto) 5.3 Eos % (Auto) 0.3 Baso % (Auto) 0.3 Immature Gran # (Auto) 0.0 Neut # (Auto) 1.7 L Lymph # (Auto) 1.3 Kings # (Auto) 0.2 L Eos # (Auto) 0.0 Baso # (Auto) 0.0 Sodium 133.7 L Potassium 3.71 Chloride 93.3 L Carbon Dioxide 26.8 Anion Gap 17.31 BUN 20.0 Creatinine 1.05 Estimated GFR (MDRD) 67.00 BUN/Creatinine Ratio 19.04 Glucose 94.7 Calcium 9.08 Total Bilirubin 1.42 H AST 22.6 ALT 12.6 Alkaline Phosphatase 74.4 Total Creatine Kinase 53.5 L Total Protein 7.82 Albumin 4.51 Globulin 3.31 Albumin/Globulin Ratio 1.36 Amylase 65.9 Lipase 34.6 Orders Category Date Time Status NPO REMINDER: IMAGING ONCE CARE 10/24/18 17:25 Completed IV [ED IV/MEDIPORT/POWERPORT] .ONCE EMERGENCY 10/24/18 17:25 Active AMYLASE Stat LAB 10/24/18 15:27 Completed CBC W/ AUTO DIFF Stat LAB 10/24/18 15:25 Completed CMP [COMPREHENSIVE METABOLIC PANEL] Stat LAB 10/24/18 15:25 Completed CPK [CREATINE KINASE] Stat LAB 10/24/18 15:25 Completed LIPASE Stat LAB 10/24/18 15:27 Completed 0.9 % Sodium Chloride [Saline Flush] MEDS 10/24/18 17:25 Ordered 1 syr IVF PRN PRN Sodium Chloride 0.9% [Sodium Chloride] 1,000 ml MEDS 10/24/18 17:[address] ABDOMEN/PELVIS WO CONTRAST Stat RADS 10/24/18 15:[address] CHEST W/O CONTRAST Stat RADS 10/24/18 15:18 Completed Medications Generic Name Dose Route Start Last Admin Trade Name Freq PRN Reason Stop Dose Admin Sodium Chloride 1,000 mls @ 150 mls/hr 10/24/18 17:25 10/24/18 17:39 Sodium Chloride IV 10/25/18 00:04 150 mls/hr BOLUS STA Administration Sodium Chloride 1 syr 10/24/18 17:25 10/24/18 17:39 Saline Flush IVF 1 syr PRN PRN Administration To flush IV Vital Signs: Temp Pulse Resp BP Pulse Ox 10/24/18 14:02 100.5 F H 55 L 20 102/42 L 93 L Departure - Departure Time of Disposition: 18:00 Disposition: TSF SHORT-TRM HOSP Discharge Problem: Distal esophageal obstruction due to foreign body Instructions: Esophageal Spasm (ED) Condition: Fair Pt referred to PMD for follow-up: Yes (Dr Roscoe Purdy) IPMP verified?: No Allergies/Adverse Reactions: Allergies No Known Allergies Allergy (Verified 10/24/18 14:11) Home Medications: Ambulatory Orders Donepezil HCl 10 mg PO BEDTIME 09/27/17 Gabapentin 100 mg PO BID 09/27/17 Hydrochlorothiazide 25 mg PO EVERY OTHER DAY 09/27/17 Lisinopril [Zestril] 5 mg PO DAILY 09/27/17 Pravastatin Sodium [Pravachol] 40 mg PO BEDTIME 09/27/17 Sulfasalazine 500 mg PO BID 09/27/17 Propranolol HCl 20 mg PO BID #60 tablet 09/28/17 Transfer Form Completed: Yes Disposition Discussed With: Patient (GI specialist and ER Physician at [facility]) , Family
--- NOTE | 2018-10-24 16:09 | CT ---
Exam: CT of the chest without contrast History: Swallowing difficulty Technique: [address] of the chest without intravascular contrast FINDINGS: Lung windows show no pulmonary parenchymal abnormality aside from granulomatous calcificat ion on the right. Granulomatous lymph node calcifications are present in the mediastinum and bety. Atherosclerotic calcification of the aorta and coronary arteries. No aortic aneurysm. Distal thorac ic esophagus filling defect measuring cross section 1.7 cm. Distended gaseous distension of the radha rene of the thoracic esophagus. No acute chest wall abnormalities. See abdominal CT for upper abdo men. Impression: 1. Distal esophagus filling defect likely representing food bolus. No obvious esophageal narrowing.
--- NOTE | 2018-10-24 16:15 | CT ---
EXAM: CT abdomen pelvis without contrast HISTORY: Swallowing difficulties COMPARISON: None TECHNIQUE: CT abdomen pelvis performed without intravenous contrast. Coronal and sagittal reformatt ed images obtained FINDINGS: Please refer to separate report CT chest regarding findings in the lower chest. No free a ir. Degenerative change in the spine. Evaluation organ parenchyma limited without contrast. Granul omas calcification in the liver. Liver otherwise unremarkable. Gallbladder unremarkable. Pancreas unremarkable. Granulomas calcification in the spleen. Spleen otherwise unremarkable. Mild nonspeci fic thickening left renal gland. Right adrenal gland unremarkable. No hydronephrosis. Left renal c yst measures 2.3 cm. No hydronephrosis or nephrolithiasis. Nonspecific bilateral perinephric strand ing. Bladder only minimally distended and poorly evaluated. Prostate mildly enlarged. Small fat-co ntaining left inguinal hernia. Aorta normal in caliber. Moderate atherosclerosis. Mixed density fi lling defect in the distal esophagus/gastroesophageal junction region measures up to 1.7 x 1.7 x 2.3 cm, likely a food bolus. No dilated loops small bowel. Appendix not visualized. Colonic diverticu losis. IMPRESSION: 1. Filling defect distal esophagus/gastroesophageal junction region, likely a food bolus. 2. Colonic diverticulosis. 3. Nonspecific bilateral perinephric stranding may reflect senescent change. 4. Atherosclerosis. 5. Enlarged prostate
[2018-10-24] MEDS ORDERED: SODIUM CHLORIDE 1,000 ML IV STA (17:25)
== END 2018-10-24 18:16 | disposition short-term general hospital (02) ==
LOC: ED 14:01
DX: T18.128A Food in esophagus causing other injury, initial encounter (principal); R10.13 Epigastric pain; E78.5 Hyperlipidemia, unspecified; I10 Essential (primary) hypertension; F03.90 Unspecified dementia, unspecified severity, without behavioral disturbance, psychotic disturbance, mood disturbance, and anxiety; Z79.899 Other long term (current) drug therapy
CPT/HCPCS: 36415; 80053; 82150; 82550; 83690; 85025; 96360; 99285